=== PATIENT | male | born 1960 | race Caucasian/White ===

== ENCOUNTER 2023-03-21 06:28 | Inpatient (IN) ==
[~2023-03-21 06:28] MED LIST: Buffered Lidocaine 1% SYRIN 1 ml INTRADERM ONE; Famotidine IV 10 MG/ML 2 ml VIAL (20 mg) IV ONE; Lactated Ringers 1000 ml BAG 1,000 ML IV SCH
[2023-03-21] MEDS ORDERED: Ondansetron 4 mg VIAL 2 MG/ML 2 ml VIAL ONE (06:30)
[2023-03-21] MEDS ORDERED: Dexamethasone IV 4 MG/ML VIAL 1 ml VIAL ONE ×2 (06:30→09:23)
[2023-03-21] MEDS ORDERED: Lidocaine 2% PF 5 ML VIAL ONE (06:30)
[2023-03-21] MEDS ORDERED: Midazolam 2 mg/2 ml VIAL 1 mg/ml 2 ml VIAL (2 mg) ONE ×2 (06:30→09:01)
[2023-03-21] MEDS ORDERED: ROPIVACAINE 5 MG/ML 30 ML BTL (0.5%) ONE (06:54)
[2023-03-21 07:18] LABS: Rapid COVID-19 Molecular Undetected (Undetected)
[2023-03-21] MEDS ORDERED: fentaNYL 100 mcg/2 ml 50 MCG/ML VIAL ONE (07:31)
[2023-03-21] MEDS ORDERED: Tranexamic Acid 1 GM/100ML BAG 2,000 MG/200 ML BAG IV ONE (07:42)
[2023-03-21] MEDS ORDERED: ceFAZolin 2 GM PREMIX 2 GM/50 ML BAG ONE (07:42)
[2023-03-21] MEDS ORDERED: Famotidine IV 10 MG/ML 2 ml VIAL (20 mg) ONE (08:03)
[2023-03-21] MEDS ORDERED: Naloxone 0.4 mg VIAL 0.4 mg/ml 1 ml VIAL IV PRN (09:00)
[2023-03-21] MEDS ORDERED: Levalbuterol 0.63MG/3ML NEB UNIT OF USE INH PRN (09:00)
[2023-03-21] MEDS ORDERED: fentaNYL 100 mcg/2 ml 50 MCG/ML VIAL IV PRN (09:00)
[2023-03-21] MEDS ORDERED: Ondansetron 4 mg VIAL 2 MG/ML 2 ml VIAL IV PRN ×2 (09:00→11:50)
[2023-03-21] MEDS ORDERED: Acetaminophen IV 1 GM/100ML 1,000 MG/100 ML BAG IV ONE (09:52)
[2023-03-21] MEDS ORDERED: Propofol 10 MG/ML 20 ML BTL ONE ×2 (10:13→11:03)
[2023-03-21] MEDS ORDERED: KETAMINE HCL 10 MG/ML 20 ml VIAL (200 MG) ONE (10:20)
[2023-03-21] MEDS ORDERED: Levalbuterol HFA INHALER MDI ONE (11:06)
[2023-03-21] MEDS ORDERED: Magnesium Hydroxide LIQ 30 ML UDC PO PRN (11:50)
[2023-03-21] MEDS ORDERED: Morphine 2 MG/ML SYRINGE IV PRN (11:50)
[2023-03-21] MEDS ORDERED: Ondansetron ODT 4 mg TAB 4 MG TAB PO PRN (11:50)
[2023-03-21] MEDS ORDERED: Lactulose 30 ml UDC PO PRN (11:50)
[2023-03-21] MEDS ORDERED: Albuterol HFA INHALER 8 gm MDI INH PRN (14:18)
[2023-03-21] MEDS: Lactated Ringers 1000 ml BAG 1,000 ML IV SCH (15:18)
[2023-03-21] MEDS: ceFAZolin 1 GM ADVAN 1 GM in NS 0.9% 50 ML 50 ML IVPB SCH (17:53)
[2023-03-21] MEDS: Magnesium Hydroxide LIQ 30 ML UDC PO SCH (20:57)
[2023-03-21] MEDS: Mometasone/Formoter 200/5 MDI INH SCH (21:42)
[2023-03-22] MEDS: Lactated Ringers 1000 ml BAG 1,000 ML IV SCH (01:22)
[2023-03-22] MEDS: ceFAZolin 1 GM ADVAN 1 GM in NS 0.9% 50 ML 50 ML IVPB SCH ×2 (01:24→08:07)
[2023-03-22 06:01] LABS: Platelet Count 230 10^3/uL (150-450)
[2023-03-22 06:24] LABS: Calcium 8.7 mg/dL (8.6-10.3); Creatinine, Serum 0.74 mg/dL (0.67-1.17); Hematocrit 39.4 % (38-53); Hemoglobin 13.5 g/dL (13.2-16.3); Mean Platelet Volume 7.5 fL (7.5-11.2); Potassium 3.9 mmol/L (3.5-5.0); eGFR CKD-EPI 101.2 (>60)
[2023-03-22] MEDS: Mometasone/Formoter 200/5 MDI INH SCH (08:09)
[2023-03-22] MEDS: Magnesium Hydroxide LIQ 30 ML UDC PO SCH (08:16)
[2023-03-22] MEDS ORDERED: Vitamin THERAPEUTIC TAB PO SCH (09:00)
[2023-03-22 10:03] VITALS: BP 120/78
== END 2023-03-22 13:25 | disposition home or self-care (01) | DRG 302 ==
LOC: OR 06:28 → SSU 06:28 → OBSVTOIN 10:50
PROVIDERS: ADMIT Orthopaedic Surgery Adult Reconstructive Orthopaedic Surgery; ATTEND Orthopaedic Surgery Adult Reconstructive Orthopaedic Surgery